=== PATIENT | female | born 1970 | race Caucasian/White ===

== ENCOUNTER 2018-01-30 03:00 | Emergency (ER) | payer MEDICAID ==
[~2018-01-30] VITALS: Ht 157.5 cm; Wt 100.0 kg
[~2018-01-30 03:00] MED LIST: ASPI-1265 PO; ATOR10TA87 PO; FURO-150 PO; LISI-600 PO; METF500T PO; OMEP20TA5 PO; POTA10TA19 PO
[2018-01-30 05:38] VITALS: BP 147/99
== END 2018-01-30 05:56 | disposition left against medical advice (07) ==
LOC: ER 03:00
DX: H57.11 Ocular pain, right eye (principal); Z53.21 Procedure and treatment not carried out due to patient leaving prior to being seen by health care provider

== ENCOUNTER 2019-02-06 23:43 | Emergency (ER) | payer MEDICAID ==
[~2019-02-06] VITALS: Ht 157.5 cm; Wt 115.0 kg
[2019-02-07] MEDS ORDERED: ketorolac tromethamine 15mg/ml inj. IM ONE (00:45)
[2019-02-07] MEDS ORDERED: IBUP-1984 PO (00:50)
[2019-02-07] MEDS ORDERED: ACET-2615 PO (00:50)
[2019-02-07 01:18] VITALS: BP 185/89
== END 2019-02-07 01:20 | disposition home or self-care (01) ==
LOC: ER 23:44
DX: M25.511 Pain in right shoulder (principal); I11.0 Hypertensive heart disease with heart failure; I50.9 Heart failure, unspecified; G89.29 Other chronic pain; Z90.710 Acquired absence of both cervix and uterus; Z98.890 Other specified postprocedural states; Z98.84 Bariatric surgery status; Z88.0 Allergy status to penicillin; Z88.2 Allergy status to sulfonamides; Z88.5 Allergy status to narcotic agent; Z88.1 Allergy status to other antibiotic agents; Z79.82 Long term (current) use of aspirin; Z79.899 Other long term (current) drug therapy
CPT/HCPCS: 96372; 99283; J1885

== ENCOUNTER 2019-06-01 19:24 | Inpatient (IN) | payer MEDICAID ==
[~2019-06-01] VITALS: Ht 167.6 cm; Wt 104.5 kg
[2019-06-01] MEDS ORDERED: ipratropium/albuterol 3ml nebule NEB ONE (19:35)
[2019-06-01 19:46] LABS: BASOPHILS # (AUTO) 0.1 X10'3 (0-0.2); BASOPHILS % (AUTO) 0.5 % (0-1); EOSINOPHILS # (AUTO) 0.6 X10'3 (0-0.9); EOSINOPHILS % (AUTO) 4.7 % (0-6); HEMATOCRIT 37.8 % (35.0-45.0); HEMOGLOBIN 12.5 g/dl (12.0-16.0); LYMPHOCYTES # (AUTO) 0.6 X10'3 (1.1-4.8); LYMPHOCYTES % (AUTO) 4.5 % (21-51); MEAN CORPUSCULAR HEMOGLOBIN 27.9 PG (27.0-31.0); MEAN CORPUSCULAR HGB CONC 32.9 g/dL (33.0-36.5); MEAN CORPUSCULAR VOLUME 84.8 FL (78-98); MEAN PLATELET VOLUME 8.2 FL (7.4-10.4); MONOCYTES # (AUTO) 0.9 X10'3 (0-0.9); MONOCYTES % (AUTO) 7.2 % (2-12); NEUTROPHILS # (AUTO) 10.9 X10'3 (1.8-7.7); NEUTROPHILS % (AUTO) 83.1 % (42-75); PLATELET COUNT 235 X10'3 (140-440); RED BLOOD COUNT 4.46 X10'6 (4.20-5.60); RED CELL DISTRIBUTION WIDTH 14.9 % (11.5-14.5); WHITE BLOOD COUNT 13.1 X10'3 (4.5-11.0)
[2019-06-01 20:00] LABS: PARTIAL THROMBOPLASTIN TIME 33 SECONDS (22-32)
[2019-06-01 20:04] LABS: ALANINE AMINOTRANSFERASE 29 U/L (12-78); ALBUMIN 3.2 G/DL (3.4-5.0); ALBUMIN/GLOBULIN RATIO 0.7 (1.1-1.5); ALKALINE PHOSPHATASE 127 IU/L (46-116); ANION GAP 6 (8-16); ASPARTATE AMINO TRANSFERASE 15 U/L (10-37); BILIRUBIN,TOTAL 0.4 MG/DL (0.1-1.0); BLOOD UREA NITROGEN 9 MG/DL (7-18); BUN/CREATININE RATIO 10.8 (6.6-38.0); CALCIUM 8.7 MG/DL (8.5-10.1); CHLORIDE 101 MMOL/L (99-107); CREATININE 0.83 MG/DL (0.40-0.90); GLUCOSE 160 MG/DL (70-104); POTASSIUM 4.1 MMOL/L (3.5-5.1); SODIUM 136 MMOL/L (135-145); TOTAL CARBON DIOXIDE 29.4 MMOL/L (24-32); TOTAL PROTEIN 7.6 G/DL (6.4-8.2); eGFR 73 ML/MIN
--- NOTE | 2019-06-01 20:32 | NUR ---
PTS , REBEL, AND MOTHER, LEANDRO, AT BEDSIDE. pT A&OX4 AND REPORTS SOME RELIEF OF SOB AFTER NEB TREATMENT. GISEL VSS, SATS ON 3L NC 93%, RR 20. PT REPROTS SHE IS "TIRED AND HUNGRY". LUNGS WITH RONCHI THROUGHOUT. OK PER Craig GUPTA TO EAT AND DRINK SOMETHING. PT GIVEN SANDWICH AND JUICE AND WATER.
[2019-06-01] MEDS ORDERED: magnesium 2GM in 50ml NS 50 ML IV ONE (20:45)
[2019-06-01] MEDS ORDERED: methylPREDNISolone sod succ 125mg/2ml vial IV ONE (20:45)
[2019-06-01] MEDS ORDERED: albuterol 2.5 MG/3 ML nebule CONTNEB PRN (20:45)
[2019-06-01 21:21] LABS: D-DIMER 0.28 MG/L FEU (0-0.50)
--- NOTE | 2019-06-01 22:34 | NUR ---
PT PLACED ON VENTURI MASK BY RESPIRATORY AT 35& FI02
[2019-06-01] MEDS ORDERED: FURO40TA4 PO (22:36)
[2019-06-01] MEDS ORDERED: CARV20CP PO (22:38)
[2019-06-01] MEDS ORDERED: GLIP5TAB13 PO (22:38)
[2019-06-01] MEDS ORDERED: CARV-50 PO (22:38)
--- NOTE | 2019-06-01 23:00 | NUR ---
DR GRACE AT BEDSIDE WITH PT
[2019-06-01] MEDS ORDERED: mag hydrox/Alum hydrox/simeth 30ml oral suspension PO PRN (23:20)
[2019-06-01] MEDS ORDERED: acetaminophen 325mg tablet PO PRN (23:20)
[2019-06-01] MEDS ORDERED: magnesium hydroxide 30ml (MOM) UD suspension PO PRN (23:20)
[2019-06-01] MEDS ORDERED: ondansetron/PF 4mg/2ml inj IV PRN (23:20)
[2019-06-02 01:00] VITALS: BP 155/74
--- NOTE | 2019-06-02 01:26 | NUR ---
Pt is dependent on cpap to 02 up. Pt is on 6 liters and desaturates when the cpap is off. Checked with Dr Tello He does not want another blood gas.
--- NOTE | 2019-06-02 03:19 | NUR ---
patient insisting on getting up and walking around. She is very diaphoretic and "needs to get out of the room". Allowed her to walk with walker, with assist. Gave her wash basin with ice water and cloths to keep cool. Encouraged her to do very little, to conserve energy.
[2019-06-02 06:00] VITALS: BP 185/80
--- NOTE | 2019-06-02 06:00 | NUR ---
Patient in room [facility] 4021. I have received report from and had the opportunity to ask questions and assume patient care DIONNE Kumar
--- NOTE | 2019-06-02 06:28 | NUR ---
Problems reprioritized. Patient report given, questions answered & plan of care reviewed with DIONNE Bergeron.
[2019-06-02] MEDS ORDERED: glipizide 5mg tablet PO SCH (07:00)
[2019-06-02 07:37] LABS: BASOPHILS % (AUTO) 0.1 % (0-1); EOSINOPHILS % (AUTO) 0.1 % (0-6); HEMATOCRIT 40.3 % (35.0-45.0); HEMOGLOBIN 13.1 g/dl (12.0-16.0); LYMPHOCYTES # (AUTO) 0.7 X10'3 (1.1-4.8); LYMPHOCYTES % (AUTO) 5.7 % (21-51); MEAN CORPUSCULAR HEMOGLOBIN 27.6 PG (27.0-31.0); MEAN CORPUSCULAR HGB CONC 32.5 g/dL (33.0-36.5); MEAN CORPUSCULAR VOLUME 84.8 FL (78-98); MEAN PLATELET VOLUME 8.6 FL (7.4-10.4); MONOCYTES # (AUTO) 0.1 X10'3 (0-0.9); MONOCYTES % (AUTO) 1.1 % (2-12); NEUTROPHILS # (AUTO) 10.6 X10'3 (1.8-7.7); PLATELET COUNT 239 X10'3 (140-440); RED BLOOD COUNT 4.76 X10'6 (4.20-5.60); RED CELL DISTRIBUTION WIDTH 15.4 % (11.5-14.5); WHITE BLOOD COUNT 11.4 X10'3 (4.5-11.0)
[2019-06-02] MEDS ORDERED: glimepiride 1 MG tablet PO SCH (07:43)
[2019-06-02] MEDS: potassium Cl 20 mEq SR tablet PO SCH (07:54)
[2019-06-02] MEDS: aspirin 81mg tab.chew PO SCH (07:54)
[2019-06-02] MEDS: metFORMIN 500mg tablet PO SCH ×2 (07:54→17:55)
[2019-06-02] MEDS: pantoprazole 40mg Tablet.DR PO SCH ×2 (07:54→19:58)
[2019-06-02] MEDS: atorvastatin 10mg tablet PO SCH (07:54)
[2019-06-02] MEDS: heparin, porcine 5000 units/ml vial SQ SCH ×2 (07:55→19:59)
[2019-06-02] MEDS: carVEDilol 12.5mg tablet PO SCH ×3 (07:55→19:58)
[2019-06-02] MEDS ORDERED: furosemide 40mg tablet PO SCH (08:00)
[2019-06-02] MEDS ORDERED: CARVEDILOL PHOSPHATE PO SCH (08:00)
[2019-06-02 08:01] LABS: ALANINE AMINOTRANSFERASE 28 U/L (12-78); ALBUMIN 3.1 G/DL (3.4-5.0); ALBUMIN/GLOBULIN RATIO 0.7 (1.1-1.5); ALKALINE PHOSPHATASE 125 IU/L (46-116); ANION GAP 7 (8-16); ASPARTATE AMINO TRANSFERASE 23 U/L (10-37); BILIRUBIN,TOTAL 0.4 MG/DL (0.1-1.0); BLOOD UREA NITROGEN 11 MG/DL (7-18); BUN/CREATININE RATIO 13.3 (6.6-38.0); CALCIUM 8.4 MG/DL (8.5-10.1); CHLORIDE 100 MMOL/L (99-107); CREATININE 0.83 MG/DL (0.40-0.90); GLUCOSE 246 MG/DL (70-104); POTASSIUM 4.2 MMOL/L (3.5-5.1); SODIUM 136 MMOL/L (135-145); TOTAL CARBON DIOXIDE 29.3 MMOL/L (24-32); TOTAL PROTEIN 7.8 G/DL (6.4-8.2); eGFR 73 ML/MIN
--- NOTE | 2019-06-02 08:10 | NUR ---
pt refused coreg. does not take anymore. Pt states she takes Losartan. will follow up with
[2019-06-02 08:21] LABS: HEMOGLOBIN A1C 8.8 % (4.5-6.2)
[2019-06-02 10:00] VITALS: BP 149/63
--- NOTE | 2019-06-02 12:47 | NUR ---
DM consult: Pt with A1c 8.8. Attempted visit with pt at bedside however pt unavailable. Written DM ed with referral to outpatient DM class and RD contact information left at bedside. Per PMH pt with hx T1DM however pt receiving Metformin and Glimepiride during admission. Pt admit with severe asthmatic bronchitis, untreated sleep apnea and cardiomyopathy. Pt currently on CHO controlled diet with documented 75-100% PO intake meeting nutrient needs. LBM 05/31. No edema or wounds. Will continue to follow. Recommendations: 1) Continue CHO controlled diet 2) Monitor need for f/u verbal DM ed 3) Wt per rx Addendum: 06/02/19 at [address] Amended: Links added.
--- NOTE | 2019-06-02 13:55 | NUR ---
paged Dr Alfred re pt BG levels AM 246 level [address] Alfred confirmed okay to start protocol. Level 3
[2019-06-02] MEDS ORDERED: glucagon, human recombinant 1mg kit SUBCUT PRN (14:30)
[2019-06-02] MEDS ORDERED: insulin Lispro (HumaLOG) vial - multi-dose SQ SCH (14:30)
[2019-06-02] MEDS ORDERED: MESSAGE TO PHARMACY PO ONE (14:30)
[2019-06-02] MEDS ORDERED: dextrose 50%-water 50ml dispensing syringe IV PRN ×2 (14:30)
[2019-06-02] MEDS ORDERED: dextrose ORAL solution 15 GM/59 ML bottle PO PRN ×2 (14:30)
[2019-06-02] MEDS: furosemide 40mg/4ml inj IV SCH ×2 (14:58→19:58)
[2019-06-02] MEDS: albuterol 2.5 MG/3 ML nebule NEB PRN ×2 (15:33→21:55)
[2019-06-02 18:00] VITALS: BP 101/49
--- NOTE | 2019-06-02 18:38 | NUR ---
Problems reprioritized. Patient report given, questions answered & plan of care reviewed with DIONNE Chaudhari.
--- NOTE | 2019-06-02 18:44 | NUR ---
Patient in room [facility]TH[facility] 4021. I have received report from DIONNE Bergeron and had the opportunity to ask questions and assume patient care.
[2019-06-02] MEDS ORDERED: insulin glargine (Lantus) pen - multi-dose SQ SCH (21:00)
[2019-06-02 22:00] VITALS: BP 115/57
[2019-06-03] MEDS: albuterol 2.5 MG/3 ML nebule NEB PRN ×2 (03:32→11:46)
[2019-06-03] MEDS ORDERED: benzonatate 100mg capsule PO PRN (03:35)
[2019-06-03 06:19] LABS: BASOPHILS % (AUTO) 0.3 % (0-1); EOSINOPHILS # (AUTO) 0.1 X10'3 (0-0.9); EOSINOPHILS % (AUTO) 0.5 % (0-6); HEMATOCRIT 38.5 % (35.0-45.0); HEMOGLOBIN 12.3 g/dl (12.0-16.0); LYMPHOCYTES # (AUTO) 2.1 X10'3 (1.1-4.8); LYMPHOCYTES % (AUTO) 17.4 % (21-51); MEAN CORPUSCULAR HEMOGLOBIN 27.1 PG (27.0-31.0); MEAN CORPUSCULAR VOLUME 84.5 FL (78-98); MEAN PLATELET VOLUME 8.1 FL (7.4-10.4); MONOCYTES # (AUTO) 1.1 X10'3 (0-0.9); MONOCYTES % (AUTO) 9.3 % (2-12); NEUTROPHILS # (AUTO) 8.6 X10'3 (1.8-7.7); NEUTROPHILS % (AUTO) 72.5 % (42-75); PLATELET COUNT 256 X10'3 (140-440); RED BLOOD COUNT 4.56 X10'6 (4.20-5.60); RED CELL DISTRIBUTION WIDTH 15.5 % (11.5-14.5); WHITE BLOOD COUNT 11.8 X10'3 (4.5-11.0)
--- NOTE | 2019-06-03 06:26 | NUR ---
Problems reprioritized. Patient report given, questions answered & plan of care reviewed with DIONNE Martinez.
[2019-06-03 06:41] LABS: ALANINE AMINOTRANSFERASE 28 U/L (12-78); ALBUMIN/GLOBULIN RATIO 0.7 (1.1-1.5); ALKALINE PHOSPHATASE 109 IU/L (46-116); ANION GAP 6 (8-16); ASPARTATE AMINO TRANSFERASE 21 U/L (10-37); BILIRUBIN,TOTAL 0.2 MG/DL (0.1-1.0); BLOOD UREA NITROGEN 21 MG/DL (7-18); BUN/CREATININE RATIO 25.9 (6.6-38.0); CALCIUM 8.3 MG/DL (8.5-10.1); CHLORIDE 101 MMOL/L (99-107); CREATININE 0.81 MG/DL (0.40-0.90); GLUCOSE 136 MG/DL (70-104); POTASSIUM 3.6 MMOL/L (3.5-5.1); SODIUM 140 MMOL/L (135-145); TOTAL PROTEIN 7.3 G/DL (6.4-8.2); eGFR 75 ML/MIN
[2019-06-03 07:02] VITALS: BP 137/71
[2019-06-03] MEDS: aspirin 81mg tab.chew PO SCH (08:20)
[2019-06-03] MEDS: pantoprazole 40mg Tablet.DR PO SCH (08:21)
[2019-06-03] MEDS: carVEDilol 12.5mg tablet PO SCH (08:21)
[2019-06-03] MEDS: furosemide 40mg/4ml inj IV SCH (08:21)
[2019-06-03] MEDS: metFORMIN 500mg tablet PO SCH (08:21)
[2019-06-03] MEDS: atorvastatin 10mg tablet PO SCH (08:21)
[2019-06-03] MEDS: potassium Cl 20 mEq SR tablet PO SCH (08:21)
[2019-06-03] MEDS: heparin, porcine 5000 units/ml vial SQ SCH (08:21)
[2019-06-03 12:04] VITALS: BP 140/65
[2019-06-03] MEDS ORDERED: albuterol 2.5 MG/3 ML nebule NEB PRN (13:05)
[2019-06-03] MEDS ORDERED: ALBU2.5V7 NEB (13:35)
[2019-06-03] MEDS ORDERED: AZI25OT PO (13:40)
[2019-06-03] MEDS ORDERED: ROBDML PO (13:41)
[2019-06-03] MEDS ORDERED: albuterol 2.5 MG/3 ML nebule NEB SCH (16:00)
[2019-06-04 05:41] LABS: ABG BASE EXCESS 0.7 mmol/L (-2.0-3.0); ABG OXYGEN SATURATION 90.9 % (95-98); ABG PCO2 (T) 51.9 mmHg (35.0-45.0); ABG PH (T) 7.339 (7.350-7.450); ABG PO2 (T) 67.3 mmHg (83-108); FMetHb 0.3 % (0.3-1.12); FO2Hb 89.7 % (94-100); PATIENT TEMPERATURE 37.8; RESPIRATORY RATE (OBSERVED) 16 b/min; TOTAL HEMOGLOBIN 13.1 G/dl (12.0-16.0)
== END 2019-06-03 14:50 | disposition home or self-care (01) | DRG 194 ==
LOC: ER 19:25 → ORTHO 4S 06-02 00:50
PROVIDERS: ADMIT Internal Medicine; ATTEND Internal Medicine
PROC: 5A09357 Assistance with Respiratory Ventilation, Less than 24 Consecutive Hours, Continuous Positive Airway Pressure (ICD-10-PCS; principal; 2019-06-02)
DX: I11.0 Hypertensive heart disease with heart failure (principal); E11.65 Type 2 diabetes mellitus with hyperglycemia; I27.81 Cor pulmonale (chronic); I42.9 Cardiomyopathy, unspecified; I50.813 Acute on chronic right heart failure; E78.5 Hyperlipidemia, unspecified; G89.29 Other chronic pain; I25.10 Atherosclerotic heart disease of native coronary artery without angina pectoris; M54.9 Dorsalgia, unspecified; F41.9 Anxiety disorder, unspecified; G47.33 Obstructive sleep apnea (adult) (pediatric); J45.909 Unspecified asthma, uncomplicated; R09.02 Hypoxemia; Z90.710 Acquired absence of both cervix and uterus; Z98.84 Bariatric surgery status; Z88.0 Allergy status to penicillin; Z88.2 Allergy status to sulfonamides; Z88.5 Allergy status to narcotic agent; Z88.1 Allergy status to other antibiotic agents
CPT/HCPCS: 36415; 36600; 71045; 80053; 82803; 82948; 83036; 83605; 83880; 84145; 84484; 85018; 85025; 85379; 85610; 85730; 87040; 87081; 93005; 93306; 94640; 94660; 94667; 94760; 96365; 96375; 99285; G0378; J1644; J1815; J1940; J2930; J3475

== ENCOUNTER 2020-04-03 21:15 | Emergency (ER) | payer MEDICAID ==
[~2020-04-03] VITALS: Ht 157.5 cm; Wt 90.9 kg
[~2020-04-03 21:15] MED LIST changes: +ALBU2.5V7 NEB; +CARV-50 PO; -FURO-150 PO; +FURO40TA4 PO; +GLIP5TAB13 PO; -LISI-600 PO; +ROBDML PO
[2020-04-03 21:36] LABS: CLARITY,URINE SLIGHTLY CLOUDY (Clear); COLOR,URINE YELLOW (Yellow); GLUCOSE, URINE >=1000 mg/dl (Neg); KETONES,URINE NEGATIVE (Neg); LEUKOCYTE ESTERASE ,URINE NEGATIVE (Neg); NITRITES, URINE POSITIVE (Neg); OCCULT BLOOD,URINE LARGE (Neg); PH,URINE 5.5 (4.8-8.0); PROTEIN,URINE NEGATIVE (Neg); UROBILINOGEN,URINE 0.2 E.U/dL (0.2-1.0)
[2020-04-03 21:38] LABS: UA COLLECTION TYPE VOIDED
[2020-04-03 21:41] LABS: BACTERIA,URINE 1+ /HPF (Neg); RBC,URINE 20-50 /HPF (0-2)
[2020-04-03 21:42] LABS: SQUAMOUS EPITHELIAL CELL,UR FEW /LPF (FEW)
[2020-04-03] MEDS ORDERED: CEPH-572 PO (22:29)
[2020-04-03] MEDS ORDERED: PHEN-786 PO (22:30)
[2020-04-03 22:33] VITALS: BP 130/82
== END 2020-04-03 22:35 | disposition home or self-care (01) ==
LOC: ER 21:16
DX: N39.0 Urinary tract infection, site not specified (principal); I11.0 Hypertensive heart disease with heart failure; I50.9 Heart failure, unspecified; G89.29 Other chronic pain; Z87.440 Personal history of urinary (tract) infections; Z90.710 Acquired absence of both cervix and uterus; Z98.890 Other specified postprocedural states; Z88.5 Allergy status to narcotic agent; Z88.2 Allergy status to sulfonamides; Z88.0 Allergy status to penicillin; Z88.1 Allergy status to other antibiotic agents; Z88.8 Allergy status to other drugs, medicaments and biological substances; Z79.82 Long term (current) use of aspirin; Z79.899 Other long term (current) drug therapy
CPT/HCPCS: 81001; 87077; 87088; 87186; 99283

== ENCOUNTER 2021-09-26 17:34 | Emergency (ER) | payer MEDICAID ==
[~2021-09-26] VITALS: Ht 157.5 cm; Wt 90.0 kg
[~2021-09-26 17:34] MED LIST changes: +CEPH-572 PO; +PHEN-786 PO; +POTA-192 PO; -POTA10TA19 PO
[2021-09-26 17:51] VITALS: BP 185/91
[2021-09-26] MEDS ORDERED: HYDR-3686 PO (18:15)
[2021-09-26] MEDS ORDERED: PRED20TA PO (18:15)
[2021-09-26] MEDS ORDERED: KEN0.1O TP (18:16)
--- NOTE | 2021-09-27 10:54 | NUR ---
RX x3 CALLED IN TO [facility] [place] AT PT'S REQUEST: 1) PREDNISONE 20MG PO DAILY x5; #5 2) TRIAMCINALONE CREAM 0.1% 15GM; APPLY THIN LAYER BID TO RASH AREA, #1 TUBE 3) HYDROXYZINE 25MG PO TID RI ITICHING; #21
== END 2021-09-26 18:27 | disposition home or self-care (01) ==
LOC: ER 17:34
DX: L23.7 Allergic contact dermatitis due to plants, except food (principal); I11.9 Hypertensive heart disease without heart failure; G89.29 Other chronic pain; M54.9 Dorsalgia, unspecified; Z88.0 Allergy status to penicillin; Z88.2 Allergy status to sulfonamides; Z79.899 Other long term (current) drug therapy
CPT/HCPCS: 99283